=== PATIENT | male | born 1975 | race Caucasian/White ===

== ENCOUNTER 2018-12-31 17:21 | Inpatient (IN) | payer OTHER ==
[~2018-12-31] VITALS: Ht 165.1 cm; Wt 77.6 kg
[2018-12-31 17:25] VITALS: BP 136/77
--- NOTE | 2018-12-31 18:11 | NUR ---
PT AMBULATES TO BED 10
--- NOTE | 2018-12-31 18:21 | NUR ---
BIB SELF C/O RLQ AND BILAT UPPER QUADRANT A/OX4, GCS 15, ABD PAIN X THIS AM 8/10. DENIES N/V/D, CP, SOB, FEVERS. NO URINARY COMPLAINTS. ABD IS ROUND, SOFT AND TENDER TO RLQ AND BILAT UPPER QUADRANT. LBM TODAY. DENIES HX. PT PLACED IN GOWN, HOOKED TO MONITOR AND BED PLACED IN LOW POSITION. WILL CONTINUE TO MONITOR CLOSELY.
--- NOTE | 2018-12-31 19:15 | NUR ---
GOT REPORT FROM THUAN WEBSTER, PT AAO X4, GCS 15, ABLE TO SPEAK WITH FULL COMPLETE SENTENCES. RESPIATIONS EVEN AND UNLABORED, BL LUNG CLEAR. SKIN WAMR/PINK/DRY, +PMSC. ABDOMEN SOFT, NON DISTENDED, HYPOACTIVE BOWEL SOUND X4. STATED PAIN 9/10. VSS, DR. SUMMERS MADE AWARE OF PT STATUS.
[2018-12-31] MEDS ORDERED: NACL 0.9% 1,000 ML IV ONE ×2 (19:19→20:40)
[2018-12-31] MEDS ORDERED: MORPHINE SULFATE 4 MG/ML SYR IVP ONE ×2 (19:20→20:40)
[2018-12-31] MEDS ORDERED: ONDANSETRON 4 MG/2 ML VIAL IVP ONE (19:20)
[2018-12-31 20:04] LABS: ANION GAP 11.7 (8-16); CARBON DIOXIDE 26.9 mmol/L (21-32); POTASSIUM 3.6 mmol/L (3.5-5.1)
[2018-12-31 20:07] LABS: APPEARANCE,URINE CLEAR (CLEAR); BILIRUBIN,URINE NEGATIVE (NEGATIVE); BLOOD, URINE NEGATIVE (NEGATIVE); COLOR,URINE YELLOW (YELLOW); LEUKOCYTE ESTERASE ,URINE NEGATIVE (NEGATIVE); NITRITE, URINE NEGATIVE (NEGATIVE); PH,URINE 6.5 (5.0-9.0); UGLUCOSE NEGATIVE (NEGATIVE)
[2018-12-31 20:08] LABS: BASOPHILS % (AUTO) 0.3 % (0.0-2.0); EOSINOPHILS # (AUTO) 0.1 K/uL (0-0.4); EOSINOPHILS % (AUTO) 0.4 % (0.0-4.0); HEMATOCRIT 49.4 % (36-52); HEMOGLOBIN 16.2 g/dL (12.0-18.0); LYMPHOCYTES % (AUTO) 6.6 % (20.5-51.1); MEAN CORPUSCULAR HEMOGLOBIN 28 pg (27-31); MEAN CORPUSCULAR HGB CONC 33 g/dL (33-37); MONOCYTES # (AUTO) 0.8 K/uL (0.8-1.0); MONOCYTES % (AUTO) 5.7 % (1.7-9.3); NEUTROPHILS # (AUTO) 12.7 K/uL (1.8-7.7); PLATELET COUNT (AUTO) 227 K/uL (140-450); RED BLOOD CELL COUNT(AUTO) 5.74 MIL/uL (4.20-6.10); RED CELL DISTRIBUTION WIDTH 13.9 % (11.6-13.7); WHITE BLOOD COUNT (AUTO) 14.6 K/uL (4.8-10.8)
[2018-12-31 20:10] LABS: TOTAL BILIRUBIN 0.4 mg/dL (0.0-1.0)
[2018-12-31] MEDS ORDERED: PIPERACILLIN/TAZOBACTAM 3.375 GM in DEXTROSE 5% 50 ML IV ONE (20:35)
[2018-12-31] MEDS ORDERED: metroNIDAZOLE 500 MG/NS PREMIX 100 ML IV ONE (20:35)
[2018-12-31] MEDS ORDERED: PIPERACILLIN/TAZOBACTAM 3.375 GM VIAL IV ONE (20:45)
[2018-12-31] MEDS ORDERED: ONDANSETRON 4 MG/2 ML VIAL IVP PRN (21:05)
[2018-12-31] MEDS ORDERED: MORPHINE SULFATE 4 MG/ML SYR IVP PRN (21:05)
[2018-12-31] MEDS ORDERED: LORazepam 2 MG/ML VIAL IVP PRN (21:05)
[2018-12-31 21:27] LABS: PROTHROMBIN TIME 9.3 secs (10.8-13.4)
--- NOTE | 2018-12-31 21:45 | NUR ---
Patient will be admitted to care of . Admited to M/S. Will go to room 119B. Belongings list completed. Report to VIOLET WEBSTER.
--- NOTE | 2018-12-31 21:45 | NUR ---
RECEIVED REPORT FROM THERAPIST SPEECH FOR CONTINUITY OF CARE. PT A/OX4 ON ROOM AIR, [place] SPEAKING. PT IS ABLE TO MAKE NEEDS KNOWN, ABLE TO FOLLOW COMMANDS. PT AMBULATES WITH STEADY GAIT AND SKIN IS INTACT. PT HAS A 20G IV TO LEFT AC, ASYMPTOMATIC AND INTACT. VITAL SIGNS WITHIN NORMAL LIMITS. PT STABLE, DENIES HAVING ANY PAIN, NO SIGNS OF DISTRESS NOTED AT THIS TIME. PT POSITIONED FOR COMFORT. BED IN LOWEST POSITION, BED ALARM ON. WILL CONTINUE TO MONITOR.
[2018-12-31] MEDS: NACL 0.9% 1,000 ML IV SCH (22:18)
[2018-12-31 23:00] VITALS: BP 111/59
[2018-12-31] MEDS ORDERED: INFLUENZA VIRUS VACCINE QUAD 0.5 ML SYR IMVAC PRN (23:45)
--- NOTE | 2019-01-01 | NUR ---
VITAL SIGNS WITHIN NORMAL LIMITS. PT STABLE, DENIES HAVING ANY PAIN, NO SIGNS OF DISTRESS NOTED AT THIS TIME. PT POSITIONED FOR COMFORT. BED IN LOWEST POSITION, BED ALARM ON. WILL CONTINUE TO MONITOR.
[2019-01-01] MEDS: PIPERACILLIN/TAZOBACTAM 3.375 GM in DEXTROSE 5% 50 ML IV SCH ×2 (00:09→05:50)
--- NOTE | 2019-01-01 02:15 | NUR ---
PT RESTING, NO SIGNS OF DISTRESS NOTED AT THIS TIME. PT POSITIONED FOR COMFORT. BED IN LOWEST POSITION, BED ALARM ON. WILL CONTINUE TO MONITOR.
--- NOTE | 2019-01-01 04:34 | NUR ---
PT STILL RESTING, DENIES PAIN. NO SIGNS OF DISTRESS NOTED AT THIS TIME. PT POSITIONED FOR COMFORT. BED IN LOWEST POSITION, BED ALARM ON. WILL CONTINUE TO MONITOR.
[2019-01-01] MEDS ORDERED: PIPERACILLIN/TAZOBACTAM 3.375 GM in DEXTROSE 5% 50 ML IV SCH (05:00)
[2019-01-01] MEDS ORDERED: PIPERACILLIN/TAZOBACTAM 3.375 GM VIAL IV ONE ×3 (05:46→16:31)
[2019-01-01 06:25] LABS: BASOPHILS % (AUTO) 0.2 % (0.0-2.0); EOSINOPHILS # (AUTO) 0.1 K/uL (0-0.4); EOSINOPHILS % (AUTO) 0.8 % (0.0-4.0); HEMATOCRIT 46.4 % (36-52); HEMOGLOBIN 15.1 g/dL (12.0-18.0); LYMPHOCYTES # (AUTO) 1.5 K/uL (2.0-11.5); LYMPHOCYTES % (AUTO) 13.5 % (20.5-51.1); MEAN CORPUSCULAR HEMOGLOBIN 28 pg (27-31); MEAN CORPUSCULAR HGB CONC 33 g/dL (33-37); MEAN CORPUSCULAR VOLUME 86.9 fL (80-94); MONOCYTES % (AUTO) 9.6 % (1.7-9.3); NEUTROPHILS # (AUTO) 8.3 K/uL (1.8-7.7); NEUTROPHILS % (AUTO) 75.9 % (42.2-75.2); PLATELET COUNT (AUTO) 179 K/uL (140-450); RED BLOOD CELL COUNT(AUTO) 5.34 MIL/uL (4.20-6.10)
[2019-01-01 06:36] LABS: ALBUMIN 3.3 g/dL (3.4-5.0); ANION GAP 12.4 (8-16); CARBON DIOXIDE 23.3 mmol/L (21-32); CREATININE 0.8 mg/dL (0.7-1.3); MAGNESIUM 1.8 mg/dL (1.8-2.4); POTASSIUM 3.7 mmol/L (3.5-5.1); TOTAL BILIRUBIN 0.6 mg/dL (0.0-1.0)
--- NOTE | 2019-01-01 07:31 | NUR ---
ENDORSED PT TO DAY SHIFT ELEANOR HOLT FOR CONTINUITY OF CARE. PT IN STABLE CONDITION.
--- NOTE | 2019-01-01 07:32 | NUR ---
PT STILL RESTING, DENIES PAIN. NO SIGNS OF DISTRESS NOTED AT THIS TIME. PT POSITIONED FOR COMFORT. BED IN LOWEST POSITION, BED ALARM ON. WILL CONTINUE TO MONITOR. Addendum: 01/01/19 at 0732 by Virgen Vega RN DISREGARD.
--- NOTE | 2019-01-01 07:35 | NUR ---
RECEIVED BEDSIDE REPORT FROM RESTORER PAPER AND PRINTS NURSE. PT IS A/OX4. STATED PAIN LEVEL OF 2, WITHIN TOLERATED LIMIT. NO SIGNS OF DISTRESS NOTED. ON RA. ABLE TO FOLLOW COMMEND. SKIN WARM, CLEAN AND INTACT. RESPIRATION UNLABORED AT 18, REGULAR. IV ON R FA 20G, PATENT AND CLEAN, INFUSING PER MD ORDER. ABLE TO AMBULATE WITH STEADY GAIT. DISCUSSED PLAN OF CARE WITH PATIENT, AND PATIENT VERBALIZED UNDERSTANDING. JOSE ALFREDO IS AT BEDSIDE. BED IN LOW POSITION, CALL LIGHT WITHIN REACH.
[2019-01-01 08:00] VITALS: BP 104/57
--- NOTE | 2019-01-01 08:09 | NUR ---
PATIENT HAS BEEN SCREENED AND CATEGORIZED LOW NUTRITION RISK. PATIENT WILL BE SEEN WITHIN 7 DAYS OF ADMISSION. 01/07/[address]
[2019-01-01] MEDS ORDERED: ENOXAPARIN 40 MG/0.4 ML SYR SUBQ SCH (09:00)
[2019-01-01] MEDS: NACL 0.9% 1,000 ML IV SCH (09:43)
--- NOTE | 2019-01-01 09:46 | NUR ---
WITHOLD ENOXAPRIN. PT HAVE SCHEDULED SURGERY.
--- NOTE | 2019-01-01 11:05 | NUR ---
PT'S FAMILY IS AT BEDSIDE. NO SIGNS OF DISTRESS NOTED.
[2019-01-01] MEDS: PIPER/TAZO 3.375GM/D5W PREMIX 50 ML IV SCH ×2 (12:49→18:50)
--- NOTE | 2019-01-01 13:15 | NUR ---
PT IS RESTING ON BED. DENIES OF PAIN. NO SIGNS OF DISTRESS NOTED. IS AT BEDSIDE.
--- NOTE | 2019-01-01 16:05 | NUR ---
OR NURSE PICKED UP PT FROM THE UNIT. PT IS IN STABLE CONDITION.
[2019-01-01] MEDS ORDERED: HYDROmorphone PFS 2 MG/ML SYR ONE (16:12)
[2019-01-01] MEDS ORDERED: fentaNYL 0.05 MG/ML VIAL ONE (16:12)
[2019-01-01] MEDS ORDERED: BUPIVACAINE-MPF/EPI 0.5% 30 ML VIAL INJ ONE (16:12)
[2019-01-01] MEDS ORDERED: SUCCINYLCHOLINE CHLORIDE 200 MG/10 ML VIAL IVP ONE (16:20)
[2019-01-01] MEDS ORDERED: GLYCOPYRROLATE 0.2 MG/ML VIAL ONE (16:20)
[2019-01-01] MEDS ORDERED: PROPOFOL 200 MG/20 ML VIAL IV ONE (16:20)
[2019-01-01] MEDS ORDERED: ONDANSETRON 4 MG/2 ML VIAL ONE (16:20)
[2019-01-01] MEDS ORDERED: DESFLURANE 240 ML BTL INH ONE (16:20)
[2019-01-01] MEDS ORDERED: DEXAMETHASONE 4 MG/ML VIAL ONE (16:20)
[2019-01-01] MEDS ORDERED: ROCURONIUM 50 MG/5 ML VIAL IV ONE (16:20)
[2019-01-01] MEDS ORDERED: PHENYLEPHRINE 10 MG/ML VIAL ONE (16:20)
[2019-01-01] MEDS ORDERED: KETOROLAC 30 MG/ML VIAL ONE (16:20)
[2019-01-01] MEDS ORDERED: HYDROmorphone 1 MG/ML AMP IVP PRN (17:10)
[2019-01-01] MEDS ORDERED: ONDANSETRON 4 MG/2 ML VIAL IVP PRN (17:10)
[2019-01-01] MEDS ORDERED: HYDROcodone/APAP 5/325 MG 1 TAB TAB PO PRN (17:25)
--- NOTE | 2019-01-01 18:00 | NUR ---
PT CAME BACK TO THE UNIT AND ACCOMPANIED WITH AND OR NURSE. VITAL SIGNS TAKEN; TEMP. 97.4, BP 110/70, SPO2 95, PULSE 70, AND RESPIRATION 18. PT DENIES PAIN. 3 DERMAL BONDS NOTED ON ABDOMEN. COMPRESSION SOCKS IN PLACE. BED IN LOW POSITION, CALL LIGHT WITHIN REACH.
[2019-01-01] MEDS: DEXT 5% / NACL 0.45% 1,000 ML IV SCH (18:36)
--- NOTE | 2019-01-01 18:38 | NUR ---
ADMINISTERED IVF PER MD ORDER. PT TOLERATED WELL. PROVIDED APPLE JUICE AND ICE REQUESTED BY PT. NO SIGNS OF DISTRESS NOTED.
--- NOTE | 2019-01-01 19:20 | NUR ---
GAVE BEDSIDE REPORT TO CORPORATE PLANNER NURSE FOR CONTINUITY OF CARE. PT IS IN STABLE CONDITION.
--- NOTE | 2019-01-01 19:21 | NUR ---
RECEIVED REPORT FROM DAY SHIFT NURSE. PT LYING IN BED AAOX4. NO C/O PAIN AT THIS TIME. NO RESP DISTRESS NOTED. PT HAS 3 SMALL INCISION WITH DERMAL BONDS ON THE ABDOMEN, OPEN TO AIR. FAMILY AT BEDSIDE. IV TO LEFT AC #20G, PATENT AND INTACT. DISCUSSED PLAN OF CARE, PT VERBALIZED UNDERSTANDING. SAFETY PRECAUTION IN PLACE. CALL LIGHT WITHIN REACH.
--- NOTE | 2019-01-01 21:40 | NUR ---
PT LYING IN BED, AWAKE. NO C/O PAIN. ALL NEEDS MET AT THIS TIME. CALL LIGHT WITHIN REACH.
--- NOTE | 2019-01-01 22:10 | NUR ---
TOLERATED INCENTIVE SPIROMETRY THERAPY WELL WITHOUT INCIDENT ENCOURAGED PATIENT WITH ACKNOWLEDGEMENT TO USE INCENTIVE SPIROMETRY EVERY 1-2 HOURS WHILE AWAKE
[2019-01-02] VITALS: BP 100/61
[2019-01-02] MEDS: PIPER/TAZO 3.375GM/D5W PREMIX 50 ML IV SCH ×3 (00:06→11:47)
--- NOTE | 2019-01-02 00:40 | NUR ---
PT SLEEPING BUT EASILY AROUSABLE. RESP EVEN AND UNLABORED. NO S/S O PAIN. IVF INFUSING WELL.
--- NOTE | 2019-01-02 03:15 | NUR ---
PT SLEEPING BUT WAKES EASILY. NO S/S OF PAIN OR DISCOMFORT. NO S/S OF SOB.
[2019-01-02] MEDS: DEXT 5% / NACL 0.45% 1,000 ML IV SCH (04:24)
--- NOTE | 2019-01-02 05:30 | NUR ---
PT LYING IN BED, AWAKE. DENIES PAIN. NO SOB NOTED. DUE MEDS GIVEN.
--- NOTE | 2019-01-02 07:10 | NUR ---
ENDORSED PT TO DAY SHIFT NURSE. PT IN STABLE CONDITION.
--- NOTE | 2019-01-02 07:12 | NUR ---
RECEIVED BEDSIDE REPORT FROM SECURITY ADMINISTRATOR NURSE. AOX4. STATED PAIN LEVEL 2/10 ON INCISION SITE AND WITHIN TOLERABLE LIMIT. DENIED OF NAUSEA AND VOMITING. ON RA. RESPIRATION EVEN AND UNLABORED. IV ON L FA 20G, CLEAN AND INTACT, INFUSING PER MD ORDER. SKIN INTACT, CLEAN AND DRY. ABLE TO AMBULATE WITH STEADY GAIT. DISCUSSED PLAN OF CARE WITH PATIENT, AND PATIENT VERBALIZED UNDERSTANDING. JOSE ALFREDO IS AT BEDSIDE. SAFETY MEASURES IN PLACE. CALL LIGHT WITHIN REACH.
[2019-01-02 07:57] LABS: ANION GAP 11.8 (8-16); CREATININE 0.8 mg/dL (0.7-1.3); POTASSIUM 3.8 mmol/L (3.5-5.1)
[2019-01-02 08:00] VITALS: BP 107/61
[2019-01-02 08:13] LABS: BASOPHILS % (AUTO) 0.1 % (0.0-2.0); EOSINOPHILS % (AUTO) 0.1 % (0.0-4.0); HEMATOCRIT 42.7 % (36-52); HEMOGLOBIN 14.1 g/dL (12.0-18.0); LYMPHOCYTES # (AUTO) 0.8 K/uL (2.0-11.5); LYMPHOCYTES % (AUTO) 10.7 % (20.5-51.1); MEAN CORPUSCULAR HEMOGLOBIN 29 pg (27-31); MEAN CORPUSCULAR HGB CONC 33 g/dL (33-37); MEAN CORPUSCULAR VOLUME 86.8 fL (80-94); MONOCYTES # (AUTO) 0.6 K/uL (0.8-1.0); NEUTROPHILS # (AUTO) 5.7 K/uL (1.8-7.7); NEUTROPHILS % (AUTO) 81.1 % (42.2-75.2); PLATELET COUNT (AUTO) 187 K/uL (140-450); RED BLOOD CELL COUNT(AUTO) 4.92 MIL/uL (4.20-6.10); RED CELL DISTRIBUTION WIDTH 14.1 % (11.6-13.7)
[2019-01-02] MEDS ORDERED: ACET-9525 PO (08:52)
--- NOTE | 2019-01-02 08:58 | NUR ---
PT STATED HE HAS PAIN 3/10 ON HIS INCISIONAL SITE. ADMINISTERED PRN PAIN PER MD ORDER.
[2019-01-02] MEDS ORDERED: ENOXAPARIN 40 MG/0.4 ML SYR SUBQ SCH (09:39)
--- NOTE | 2019-01-02 10:09 | NUR ---
ADMINISTERED MED PER MD ORDER. PT TOLERATED WELL. FAMILY IS AT BEDSIDE.
--- NOTE | 2019-01-02 11:25 | NUR ---
PT IS RESTING ON BED. DENIES PAIN. NO SIGNS OF DISTRESS NOTED. IS AT BEDSIDE.
--- NOTE | 2019-01-02 13:50 | NUR ---
PT IS RESTING ON BED. IS AT BEDSIDE. STATED PAIN LEVEL 1/10 WITHIN HIS PAIN TOLERATED LIMIT.
[2019-01-02] MEDS ORDERED: MORPHINE SULFATE 4 MG/ML SYR IVP PRN (14:00)
--- NOTE | 2019-01-02 14:20 | NUR ---
PT C/O PAIN LEVEL 7/10 ON HIS INCISION SITE AFTER HE WALKED AROUND THE [address]. MEDICATED.
[2019-01-02 15:05] VITALS: BP 107/61
[2019-01-02 16:00] VITALS: BP 124/78
--- NOTE | 2019-01-02 16:20 | NUR ---
PT IS RESTING ON BED. IS AT BEDSIDE. NO SIGN OF DISTRESS NOTED.
--- NOTE | 2019-01-02 16:51 | NUR ---
ADMINISTERED FLU VACCINE. NO BLEEDING AT INJECTION SITE. NO SIGNS OF DISTRESS NOTED. PT IS READY TO CHANGE INTO HIS CLOTHES.
--- NOTE | 2019-01-02 17:07 | NUR ---
DISCHARGE INSTRUCTION PROVIDED TO PT AND JOSE ALFREDO IN PREFERRED LANGUAGE CUBAN. EDUCATED PT AND ON MD FOLLOW UP,DISEASE MANAGEMENT, SIGNS AND SYMPTOMS, MEDICATION REGIMEN AND SIDE EFFECTS, AND DIET REGIMEN. ANSWERED ALL PT AND QUESTIONS. PT AND BOTH VERBALIZED UNDERSTANDING. D/C IV, IV CANNULA INTACT, NO BLEEDING AT INSERTION SITE. REMOVED ARM BANDS. PT IS IN STABLE CONDITION. ESCORTED PT WITH WHEEL CHAIR TO THE LOBBY. PT IS DISCHARGED AT THIS TIME.
[2019-01-03] MEDS ORDERED: ENOXAPARIN 40 MG/0.4 ML SYR SUBQ SCH (09:00)
--- NOTE | 2019-01-04 15:04 | NUR ---
CALLED PCP DR. MATTY CLEMENTE TO MAKE FOLLOW UP APPOINTMENT. I MADE AN APPOINTMENT FOR Friday01/06/19 AT 9:15A.M. [id number] [facility] [phone]. I CALLED THE PATIENT AND INFORMED HIS , JOSE ALFREDO.
== END 2019-01-02 17:05 | disposition home or self-care (01) | DRG 234 ==
LOC: MED 17:21 → MTU 21:01
PROVIDERS: ADMIT Internal Medicine; ATTEND Internal Medicine
PROC: 3E02340 Introduction of Influenza Vaccine into Muscle, Percutaneous Approach (ICD-10-PCS; 2018-12-31)
PROC: 0DTJ4ZZ Resection of Appendix, Percutaneous Endoscopic Approach (ICD-10-PCS; principal; 2019-01-01 16:00)
DX: K35.80 Unspecified acute appendicitis (principal); Z23 Encounter for immunization
CPT/HCPCS: 36415; 80048; 80053; 81003; 82374; 83690; 83735; 85025; 85610; 85651; 85730; 86140; 86886; 86900; 86901; 87081; 88304; 96361; 96365; 96367; 96375; 96376; 99285; J0330; J1100; J1170; J1650; J1885; J2270; J2370; J2405; J2543; J2704; J3010; J3490; J7030; J7060